=== PATIENT | female | born 1995 | race Caucasian/White ===

== ENCOUNTER 2018-06-09 17:23 | Outpatient (REF) | payer BC, SELFPAY ==
--- NOTE | 2018-06-09 16:25 | PAPFT_PTH ---
PATIENT: IBRAHIMA BRASWELL LOC: [facility] U#:[id number] AGE/SX: 22/F ROOM: RE06/09/[address]: Sridhar Colon : 1995 BED: DIS: 06/09/2018 SPEC #: [id number] RECD: 06/10/18 13:15 STATUS: MICK REGaby #: [id number] HAYLEE: 06/09/18 16:[address]: Sridhar Colon DEPT: [facility] Cytology RECD BY: Elida Cobian Tissues: 1 - CX/ENDOCX FOR PAP SMEARS Procedures: PAP THIN PREP/UVM Screening HPV DNA PROBE Comments: [id number]
== END 2018-06-09 17:43 ==
LOC: NCHCN 17:23
PROVIDERS: PCP Nurse Practitioner Family; Visit Provider Nurse Practitioner Family
DX: Z00.00 Encounter for general adult medical examination without abnormal findings (principal); Z12.4 Encounter for screening for malignant neoplasm of cervix; Z11.51 Encounter for screening for human papillomavirus (HPV)
CPT/HCPCS: 88142; 87624

== ENCOUNTER 2018-06-12 18:31 | Emergency (ER) | payer BC, SELFPAY ==
[2018-06-12 18:36] VITALS: BP 113/84; PULSE 122; TEMP 39.2; O2SAT 99
--- NOTE | 2018-06-12 18:53 | W.ED.GENAD ---
Discharge Plan Disposition Patient Disposition: HOME Condition: Stable Discharge Details Chief Complaint: Sorethroat Clinical Impression: Acute streptococcal pharyngitis Primary Care Provider: Sridhar Colon ED Provider: Martin Goncalves Home Meds and New Rx's Prescriptions: New amoxicillin 500 mg capsule 500 mg PO BID Qty: 20 RF: 0 Discharge Instructions Instructions: Pharyngitis (ED) Additional Instructions: Take 1000mg tylenol and 600mg ibuprofen every 6 hours for pain as needed If symptoms continue in a week see your primary care provider return to the emergency department for difficulty breathing or inability to swallow liquids Medical Decision Making 22 yo female who denies chronic med problems comes in with fever and sore throat, no other symptoms, since . Denies drooling, stridor, dyspnea, or difficulty swallowing. 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 STrep test is postive, will start abx and advised f/u with pcp and return precautions given Differential Diagnosis viral vs strep pharyngitis HPI General Mode of arrival: ambulatory. Date/Time Provider Initiated Documentation: 06/12/18 18:39. Limitations to Documentation: no limitations. Information obtained by: patient. History of Present Illness 22 year old F presents to the emergency department with the chief complaint of sore throat, described as moderate, with intensity rated at 5. Quality is described as aching, and is localized to the mouth (throat). Patient reports no radiation. Patient started experiencing this day(s) (1) and it has been constant. No relieving factors improve symptom(s), No exacerbating factors reported . Patient notes fever/chills. Patient did receive the following treatments prior to arrival, none Related Data Home Medications Medication Instructions Recorded Confirmed amoxicillin 500 mg PO BID #20 cap 06/12/18 Previous Rx's Medication Instructions Recorded amoxicillin 500 mg PO BID #20 cap 06/12/18 Allergies Allergy/AdvReac Type Severity Reaction Status Date / Time No Known Allergies Allergy Unverified 06/12/18 18:39 General Stated Complaint: Sorethroat CHAYO: 3 Review of Systems Review of Systems All systems reviewed & are unremarkable except as noted in HPI and below Constitutional Denies weakness Cardiovascular Denies chest pain and Denies dyspnea Respiratory Denies cough and Denies dyspnea Gastrointestinal Denies nausea and Denies vomiting Musculoskeletal Denies joint swelling Integumentary/Breasts Denies rash Neurologic Denies weakness [facility] History Bifid uvula Recurrent streptococcal tonsillitis Tonsillar hypertrophy Family History Mother Healthy adult Father Healthy adult Sister No problems noted. Grandfather No problems noted. Grandmother No problems noted. Other No problems noted. Social History Smoking/Tobacco Use Status: Never Alcohol Intake: current Alcohol Intake frequency: 0-2 drinks per day Substance use type: does not use Do you feel safe at home: Yes Do you feel safe in your relationship?: Yes Exam Const General: no acute distress Orientation: alert HENMT Head: normal to inspection Ears: external ears normal General nose exam: external nose normal Mouth: moist mucous membranes Eyes General: appearance normal, both eyes and all related structures Neck Neck: normal visual inspection Resp Effort & Inspection: normal respiratory effort and able to speak in complete sentences Cardio Rate: regular rate Skin General skin exam: no rashes or lesions noted Neuro General: alert and oriented x3 Extrem General: normal to inspection Psych Mental Status: mental status grossly normal Course Vital Signs Temperature 39.2 C H 06/12/18 18:36 Pulse 122 H 06/12/18 18:36 Blood Pressure 113/84 06/12/18 18:36 Pulse Oximetry 99 06/12/18 18:36 Temperature 39.2 C H 06/12/18 18:36 Temperature Source Temporal Artery Scan 06/12/18 18:36 Pulse 122 H 06/12/18 18:36 Respiratory Effort Non-Labored 06/12/18 18:36 Blood Pressure 113/84 06/12/18 18:36 Blood Pressure Position Sitting 06/12/18 18:36 Pulse Oximetry 99 06/12/18 18:36 Oxygen Delivery Method Room Air 06/12/18 18:36 Oxygen Flow Rate 0 06/12/18 18:36 Pain Level 6 06/12/18 18:36 Lab/Test Results Lab/Test Results: POC Strep Test-MICHAEL(Rapid) Start: 06/12/18 18:45 Freq: Status: Active Protocol: Document 06/12/18 18:45 TB (Rec: 06/12/18 18:45 TB [facility]-[id number]) Strep test-MICHAEL(Rapid)-POC POC-Strep test-MICHAEL (Rapid) Positive POC-Strep test-MICHAEL (Rapid) Positive
[2018-06-12] MEDS: Dexamethasone 10 MG/ML VIAL PO (19:06)
== END 2018-06-12 19:11 | disposition home or self-care (01) ==
PROVIDERS: Emergency Provider Emergency Medicine; PCP Nurse Practitioner Family
DX: J02.0 Streptococcal pharyngitis (principal); R50.9 Fever, unspecified
CPT/HCPCS: 87880; 99283; J1100